=== PATIENT | female | born 1960 | race Caucasian/White ===

== ENCOUNTER 2016-08-16 16:07 | Inpatient (IN) | payer MEDICAID, MEDICARE, OTHER ==
[~2016-08-16] VITALS: Ht 154.9 cm; Wt 66.2 kg
[~2016-08-16 16:07] MED LIST: TRAM50 PO
[2016-08-16 16:13] VITALS: BP 113/76; PULSE 66; RESP 17; TEMP 98.1; O2SAT 96
--- NOTE | 2016-08-16 16:16 | PD ---
HPI Chief Complaint: Fall Time Seen by Provider: 16:16 Travel History International Travel<30 days: No Contact w/Intl Traveler<30days: No Traveled to known affect area: No History of Present Illness HPI 56-year-old female with history of HLD presents to ED after fall from 8 foot ladder. The patient states she was painting, the ladder fell and she landed on her left side, striking her head on the concrete in the process. She denies loss of consciousness. On presentation she complains of 4/10 left thigh and hip pain, exacerbated to 10/10 with attempted ambulation. She denies headache, dizziness, vision changes, neck pain, chest pain, palpitations, abdominal pain, nausea, vomiting, other musculoskeletal pain. Unsure of her last tetanus immunization. No treatment attempted at home. NKDA. PFSH Past Medical History High Cholesterol: Yes Diminished Hearing: No ?: Not Past Surgical History Other Surgery: Yes (skin grafts from bianchi) Social History Alcohol Use: No Tobacco Use: Yes Substance Use: No Allergies-Medications (Allergen,Severity, Reaction): Coded Allergies: No Known Allergies (Unverified , 08/16/16) Reported Meds & Prescriptions Reported Meds & Active Scripts Active Ultram (Tramadol HCl) 50 Mg Tab 50 Mg PO Q6H PRN FOR PAIN Reported [chol med] Review of Systems Except as stated in HPI: all other systems reviewed are Neg Physical Exam Narrative GENERAL: Well-nourished, well-developed white female in no acute distress. SKIN: Warm and dry. There is a 7 -8 cm abrasion on the anterior left keita. Thorough evaluation reveals no other edema, ecchymosis, abrasion, or laceration of the skin. HEAD: Normocephalic. Atraumatic. No raccoon eyes or holloway sign. No tenderness to palpation of the skull. No bony step-offs. No malocclusion of the teeth. EYES: No scleral icterus. No injection or drainage. PERRLA. EOMI. ENT: Pearly leslie tympanic membrane is bilaterally. Nasal mucosa is moist. Oropharynx without erythema, edema or exudate. NECK: Supple, trachea midline. No JVD or lymphadenopathy. No midline tenderness to palpation. Patient retains full, active, painless range of motion of the neck. CARDIOVASCULAR: Regular rate and rhythm without murmurs, gallops, or rubs. 2+ DP and radial pulses bilaterally. RESPIRATORY: Breath sounds clear and equal bilaterally. No accessory muscle use. GASTROINTESTINAL: Abdomen soft, non-tender, nondistended. + Bowel sounds MUSCULOSKELETAL: No cyanosis, or edema. Patient is sitting in the stretcher with the left leg slightly flexed. Tender to palpation of the left anterior hip and groin. Tender to palpation of the shaft of the left femur. Flexion and extension of the left hip and knee elicits pain. No foreshortening, no internal rotation. No other tenderness to palpation or limitations to range of motion of the joints of the upper and lower extremities bilaterally. NEUROLOGICAL: Awake and alert. Cranial nerves II through XII intact. Motor and sensory grossly within normal limits. 5/5 muscle strength in all muscle groups. Normal speech. BACK: Nontender without obvious deformity. No CVA tenderness. No midline tenderness. tenderness. Data Data Last Documented VS Vital Signs Date Time Temp Pulse Resp B/P Pulse Ox O2 Delivery O2 Flow Rate FiO2 08/16/16 17:41 93 Room Air 08/16/16 16:13 98.1 66 17 113/76 Orders Oxycodone-Acetamin 7.5-325 Mg (Percocet (08/16/16 16:30) Ct Brain W/O Iv Contrast(Rout) (08/16/16 16:29) Femur (Ap & Lat/2vws) (08/16/16 16:29) Hip, Uni(Ap&Lat) W Ap Pelvis (08/16/16 16:29) Ice/Cold Pack (08/16/16 16:29) Tetanus/Diphtheria Tox Adult (Tetanus/Di (08/16/16 16:45) Electrocardiogram (08/16/16 17:31) Complete Blood Count With Diff (08/16/16 17:31) Comprehensive Metabolic Panel (08/16/16 17:31) Prothrombin Time / Inr (Pt) (08/16/16 17:31) Act Partial Throm Time (Ptt) (08/16/16 17:31) Type And Screen (08/16/16 17:31) Urinalysis - C+S If Indicated (08/16/16 17:32) Urinary Catheter Insert/Apply (08/16/16 17:32) Chest, Single Ap (08/16/16 ) MDM Medical Decision Making Medical Screen Exam Complete: Yes Emergency Medical Condition: Yes Differential Diagnosis Contusion versus musculoskeletal pain versus femur fracture versus hip fracture versus skull fracture versus intracranial hemorrhage versus other Narrative Course 56-year-old female with history of HLD presents to ED after fall from 8 foot ladder. The patient states she was painting, the ladder fell and she landed on her left side, striking her head on the concrete in the process. She denies loss of consciousness. On presentation she complains of 4/10 left thigh and hip pain, exacerbated to 10/10 with attempted ambulation. She denies headache, dizziness, vision changes, neck pain, chest pain, palpitations, abdominal pain, nausea, vomiting, other musculoskeletal pain. Unsure of her last tetanus immunization. Vitals reviewed. Physical exam reveals well developed white female in no acute distress. She is tender to palpation of the anterior lateral left hip and groin as well as the shaft of the femur. There is a abrasion on the anterior left keita. Otherwise unremarkable. The patient was administered by mouth narcotic pain medications. CT of the head and x-ray of the hip were ordered. X-rays of the hip reveal hip fracture. Basic lab work, chest x-ray, EKG,cruz catheter, UA, IV ordered. Patient will be transferred to a medical bed to provide adequate pain management. Please see oncoming provider notes for disposition. Charline Freeman Aug 16, 2016 16:16
[2016-08-16] MEDS ORDERED: oxyCODONE/ACETAMINOPHEN 7.5 MG/325 MG TAB PO ONE (16:30)
[2016-08-16] MEDS ORDERED: TETANUS/DIPHTHERIA TOXOID ADULT 0.5 ML VIAL IM ONE (16:45)
[2016-08-16] MEDS ORDERED: CHOL MED (16:54)
--- NOTE | 2016-08-16 17:43 | RADRPT ---
EXAM DATE/TIME: 08/16/2016 17:21 [facility] COMPARISON: No previous studies available for comparison. INDICATIONS : Fall with head trauma. RADIATION DOSE: 56.78 CTDIvol (mGy) MEDICAL HISTORY : None documented. SURGICAL HISTORY : None documented. ENCOUNTER: Initial ACUITY: 1 day PAIN SCALE: 7/10 LOCATION: cranial TECHNIQUE: Multiple contiguous axial images were obtained of the head. Using automated exposure control and adj ustment of the mA and/or kV according to patient size, radiation dose was kept as low as reasonably a chievable to obtain optimal diagnostic quality images. FINDINGS: CEREBRUM: The ventricles are normal for age. No evidence of midline shift, mass lesion, hemorrhage or acute in farction. No extra-axial fluid collections are seen. POSTERIOR FOSSA: The cerebellum and brainstem are intact. The 4th ventricle is midline. The cerebellopontine angle i s unremarkable. EXTRACRANIAL: The visualized portion of the orbits is intact. SKULL: The calvaria is intact. No evidence of skull fracture. CONCLUSION: Negative examination. Elan Dennis MD on August 16, 2016 at 17:41 Board Certified Radiologist. This report was verified electronically.
--- NOTE | 2016-08-16 17:46 | RADRPT ---
EXAM DATE/TIME: 08/16/2016 17:00 [facility] COMPARISON: CHEST PA & LAT, November 10, 2015, 17:57. INDICATIONS : Left Hip pain after fall. MEDICAL HISTORY : None. SURGICAL HISTORY : None. ENCOUNTER: Initial ACUITY: 1 day PAIN SCORE: 10/10 LOCATION: Left Hip. FINDINGS: The examination demonstrates a moderately displaced fracture through the left femoral neck. The femor al head remains within the acetabular fossa. The acetabulum appears intact. CONCLUSION: Moderately displaced, impacted fracture of the left hip. Clay Das MD on August 16, 2016 at 17:44 Board Certified Radiologist. This report was verified electronically.
--- NOTE | 2016-08-16 17:47 | RADRPT ---
EXAM DATE/TIME: 08/16/2016 17:00 [facility] COMPARISON: CHEST PA & LAT, November 10, 2015, 17:57. INDICATIONS : Left Femur Pain after fall, proximal femur pain most prevalent. MEDICAL HISTORY : None. SURGICAL HISTORY : None. ENCOUNTER: Initial ACUITY: 1 day PAIN SCORE: 10/10 LOCATION: Left Femur. FINDINGS: The examination demonstrates an angulated, mildly displaced fracture of the left femoral neck. The re mainder of the femur is intact. CONCLUSION: Fracture through the left femoral neck. Clay Das MD on August 16, 2016 at 17:45 Board Certified Radiologist. This report was verified electronically.
[2016-08-16 18:07] LABS: AUTOMATED NEUTROPHIL # 12.4 TH/MM3 (1.8-7.7); BASOPHIL % 0.3 % (0.0-2.0); EOSINOPHIL # 0.1 TH/MM3 (0-0.4); EOSINOPHIL % 0.4 % (0.0-4.0); HEMATOCRIT 42.7 % (35.0-46.0); HEMO FLAGS DIFF FINAL; LYMPH % 9.5 % (9.0-44.0); LYMPHOCYTE # 1.4 TH/MM3 (1.0-4.8); MEAN CELL VOLUME 91.9 FL (80.0-100.0); MEAN CORPUSCULAR HEMOGLOBIN 30.7 PG (27.0-34.0); MEAN CORPUSCULAR HGB CONC 33.4 % (32.0-36.0); MONO % 4.8 % (0.0-8.0); PLATELET COUNT 208 TH/MM3 (150-450); RED BLOOD COUNT 4.65 MIL/MM3 (4.00-5.30); RED CELL DISTRIBUTION WIDTH 14.2 % (11.6-17.2); WHITE BLOOD COUNT 14.5 TH/MM3 (4.0-11.0)
--- NOTE | 2016-08-16 18:11 | PD ---
Physical Exam Date Seen by Provider: Aug 16, 2016 Narrative Patient is brought back to the pot with a known left hip fracture. She was initially seen in triage. Data Data Last Documented VS Vital Signs Date Time Temp Pulse Resp B/P Pulse Ox O2 Delivery O2 Flow Rate FiO2 08/16/16 19:00 59 17 145/73 95 Room Air 08/16/16 16:13 98.1 Orders Oxycodone-Acetamin 7.5-325 Mg (Percocet (08/16/16 16:30) Ct Brain W/O Iv Contrast(Rout) (08/16/16 16:29) Femur (Ap & Lat/2vws) (08/16/16 16:29) Hip, Uni(Ap&Lat) W Ap Pelvis (08/16/16 16:29) Ice/Cold Pack (08/16/16 16:29) Tetanus/Diphtheria Tox Adult (Tetanus/Di (08/16/16 16:45) Electrocardiogram (08/16/16 17:31) Complete Blood Count With Diff (08/16/16 17:31) Comprehensive Metabolic Panel (08/16/16 17:31) Prothrombin Time / Inr (Pt) (08/16/16 17:31) Act Partial Throm Time (Ptt) (08/16/16 17:31) Type And Screen (08/16/16 17:31) Urinalysis - C+S If Indicated (08/16/16 17:32) Urinary Catheter Insert/Apply (08/16/16 17:32) Chest, Single Ap (08/16/16 ) Morphine Inj (Morphine Inj) (08/16/16 18:15) Ondansetron Inj (Zofran Inj) (08/16/16 18:15) Admit Order (Ed Use Only) (08/16/16 19:49) Consult Orthopedic (08/16/16 ) Labs Laboratory Tests Test 08/16/16 08/16/16 17:45 18:15 White Blood Count 14.5 TH/MM3 Red Blood Count 4.65 MIL/MM3 Hemoglobin 14.2 GM/DL Hematocrit 42.7 % Mean Corpuscular Volume 91.9 FL Mean Corpuscular Hemoglobin 30.7 PG Mean Corpuscular Hemoglobin 33.4 % Concent Red Cell Distribution Width 14.2 % Platelet Count 208 TH/MM3 Mean Platelet Volume 9.0 FL Neutrophils (%) (Auto) 85.0 % Lymphocytes (%) (Auto) 9.5 % Monocytes (%) (Auto) 4.8 % Eosinophils (%) (Auto) 0.4 % Basophils (%) (Auto) 0.3 % Neutrophils # (Auto) 12.4 TH/MM3 Lymphocytes # (Auto) 1.4 TH/MM3 Monocytes # (Auto) 0.7 TH/MM3 Eosinophils # (Auto) 0.1 TH/MM3 Basophils # (Auto) 0.0 TH/MM3 CBC Comment DIFF FINAL Differential Comment Prothrombin Time 10.4 SEC Prothromb Time International 0.9 RATIO Ratio Activated Partial 27.5 SEC Thromboplast Time Sodium Level 139 MEQ/L Potassium Level 3.7 MEQ/L Chloride Level 105 MEQ/L Carbon Dioxide Level 26.6 MEQ/L Anion Gap 7 MEQ/L Blood Urea Nitrogen 14 MG/DL Creatinine 1.00 MG/DL Estimat Glomerular Filtration 57 ML/MIN Rate Random Glucose 126 MG/DL Calcium Level 9.2 MG/DL Total Bilirubin 0.2 MG/DL Aspartate Amino Transf 37 U/L (AST/SGOT) Alanine Aminotransferase 37 U/L (ALT/SGPT) Alkaline Phosphatase 113 U/L Total Protein 7.1 GM/DL Albumin 4.0 GM/DL Blood Type O NEGATIVE Antibody Screen NEGATIVE Blood Bank Comment Urine Color YELLOW Urine Turbidity CLEAR Urine pH 6.5 Urine Specific [place] 1.016 Urine Protein NEG mg/dL Urine Glucose (UA) NEG mg/dL Urine Ketones NEG mg/dL Urine Occult Blood TRACE Urine Nitrite NEG Urine Bilirubin NEG Urine Urobilinogen LESS THAN 2.0 MG/DL Urine Leukocyte Esterase NEG Urine Amorphous Sediment RARE Microscopic Urinalysis Comment CULT NOT INDICATED [facility] Supervised Visit with ISAAC: Yes Interpretation(s) EKG shows a sinus rhythm with a ventricular rate of 65. No ST segment elevation or depression. She had a single PVC. Narrative Course I, Dr. Schultz, have reviewed the advance practice practitioner's documentation and am in agreement, met with the patient face to face, made the diagnosis, and the medical decision making was done by me. *My assessment and Findings: The patient is awake and alert and fully oriented.. I have not manipulated her left hip. She has an abrasion on her left keita. She has R he had a tetanus shot. She has full and equal distal pulses. She has normal movement of her toes. Head CT is negative. X-ray of femur and pelvis shows a left femoral neck fracture. H&H is 14.2 and 42.7. White count is 14.5. Chemistries are unremarkable. Coagulation studies are normal. UA is negative for infection. Physician Communication Physician Communication Dr. Blanca asked that I admit the patient to medicine. He asked that we keep the patient NPO after midnight tonight. Diagnosis Primary Impression: Fracture of femoral neck, left Qualified Code: S72.002A - Closed fracture of neck of left femur, initial encounter Admitting Information Admitting Physician Requests: Admit Condition: Stable Goldie Schultz MD Aug 16, 2016 18:11
[2016-08-16] MEDS ORDERED: ONDANSETRON HCL 4 MG/2 ML VIAL IV PUSH ONE (18:15)
[2016-08-16] MEDS ORDERED: MORPHINE SULFATE 8 MG/ML INJ IV PUSH ONE (18:15)
[2016-08-16 18:29] LABS: APTT (PATIENT) 27.5 SEC (24.3-30.1); INTERNATIONAL NORMALIZED RATIO 0.9 RATIO; PROTHROMBIN TIME - PATIENT 10.4 SEC (9.8-11.6)
[2016-08-16 18:30] LABS: ALKALINE PHOSPHATASE 113 U/L (45-117); ALT (GPT) 37 U/L (10-53); ANION GAP 7 MEQ/L (5-15); AST (GOT) 37 U/L (15-37); BICARBONATE 26.6 MEQ/L (21.0-32.0); BLOOD UREA NITROGEN 14 MG/DL (7-18); CHLORIDE 105 MEQ/L (98-107); GLOMERULAR FILTRATION RATE 57 ML/MIN (>89); POTASSIUM 3.7 MEQ/L (3.5-5.1); SODIUM (NA) 139 MEQ/L (136-145); TOTAL BILIRUBIN ADULT 0.2 MG/DL (0.2-1.0)
[2016-08-16 18:36] LABS: BLOOD, URINE TRACE (NEG); COMMENT (UR) CULT NOT INDICATED; CULTURE IF INDICATED CULT NOT INDICATED; GLUCOSE,URINE NEG (NEG); KETONE, URINE NEG (NEG); NITRITE,URINE NEG (NEG); PH, URINE 6.5 (5.0-8.5); URINE COLOR YELLOW (YELLW/STRAW)
--- NOTE | 2016-08-16 18:39 | RADRPT ---
EXAM DATE/TIME: 08/16/2016 17:48 [facility] COMPARISON: CHEST PA & LAT, November 10, 2015, 17:57. INDICATIONS : Evaluate for pneumonia, pneumothorax, or communicable disease. Pre-op Hip Surgery. MEDICAL HISTORY : None. SURGICAL HISTORY : None. ENCOUNTER: Initial ACUITY: 1 day PAIN SCORE: 0/10 LOCATION: Bilateral chest FINDINGS: The lungs are clear without infiltrate, nodule, or mass. There is no appreciable pleural effusion fo r technique. Heart and mediastinum are unremarkable. CONCLUSION: No acute cardiopulmonary disease. Jamila Sigala MD on August 16, 2016 at 18:36 Board Certified Radiologist. This report was verified electronically.
[2016-08-16 19:00] VITALS: BP 145/73; PULSE 59; RESP 17; O2SAT 95
[2016-08-16] MEDS ORDERED: SODIUM CHLOR 0.9% 1000 ML INJ 1,000 ML IV SCH (20:00)
[2016-08-16] MEDS ORDERED: MORPHINE SULFATE 4 MG/ML INJ IV PRN (20:00)
[2016-08-16] MEDS ORDERED: ONDANSETRON HCL 4 MG/2 ML VIAL IVP PRN (20:00)
[2016-08-16] MEDS ORDERED: ACETAMINOPHEN/HYDROcodone 325 MG/5 MG TAB PO PRN (20:00)
[2016-08-16] MEDS ORDERED: BISACODYL 10 MG SUPP PR PRN (20:00)
[2016-08-16] MEDS ORDERED: ACETAMINOPHEN 325 MG TAB PO PRN (20:00)
[2016-08-16] MEDS ORDERED: SODIUM CHLORIDE 0.9% FLUSH 5 ML FLUSH FLUSH PRN (20:00)
--- NOTE | 2016-08-16 20:10 | HHI.HP ---
[facility] Ad[facility] Diagnosis left femoral neck fracture Diagnoses: (1) Fracture of femoral neck, left Diagnosis: Principal (2) Dehydration Diagnosis: Principal (3) Leukocytosis Diagnosis: Principal (4) HTN (hypertension) Diagnosis: Principal Travel History International Travel<30 Days: No Contact w/Intl Traveler <30 Da: No Traveled to Known Affected Are: No History of Present Illness This is a 56-year-old female with a PMH of HTN and Hyperlipidemia who was brought into the ER by EMS secondary to complaints of left hip pain after a fall. Pt states she was up on a ladder when she fell and landed on her left side. No LOC. On arrival, BP 113/76, HR 66, O2 sat 96% on RA, Afebrile. WBC 14.5. Chemistry essentially unremarkable except for GFR 57. UA negative. CXR with no acute findings. CT Head negative. Hip X-ray with moderately displaced impacted fracture of the left hip. Dr. Lockhart consulted by ER physician, plan is for surgical intervention a.m. Review of Systems Other ROS: 14 point review of systems otherwise negative. Past Family Social History Past Medical History PMH: HTN and Hyperlipidemia Past Surgical History PAST SURGICAL HISTORY: Skin Graft Allergies: Coded Allergies: No Known Allergies (Unverified , 08/16/16) Family History PAST FAMILY HISTORY: Reviewed. No h/o DM or CAD Social History PAST SOCIAL HISTORY: Negative for alcohol or drugs. Positive for tobacco. Physical Exam Vital Signs Vital Signs Date Time Temp Pulse Resp B/P Pulse Ox O2 Delivery O2 Flow Rate FiO2 08/16/16 19:00 59 17 145/73 95 Room Air 08/16/16 17:41 93 Room Air 08/16/16 16:13 98.1 66 17 113/76 96 Physical Exam PE: GENERAL: Middle-aged female in no acute distress. HEENT: PERRLA, EOMI. No scleral icterus or conjunctival pallor. No lid lag or facial droop. CARDIOVASCULAR: Regular rate and rhythm. No obvious murmurs to auscultation. No chest tenderness to palpation. RESPIRATORY: No obvious rhonchi or wheezing. Clear to auscultation. Breath sounds equal bilaterally. GASTROINTESTINAL: Abdomen soft, non-tender, nondistended. BS normal. MUSCULOSKELETAL: Decreased ROM of LLE secondary to injury. Pulses intact NEUROLOGICAL: Awake, alert and oriented x4. No focal neurologic deficits. Moving both upper and lower extremities spontaneously. Laboratory Laboratory Tests Test 08/16/16 08/16/16 17:45 18:15 White Blood Count 14.5 Red Blood Count 4.65 Hemoglobin 14.2 Hematocrit 42.7 Mean Corpuscular Volume 91.9 Mean Corpuscular Hemoglobin 30.7 Mean Corpuscular Hemoglobin 33.4 Concent Red Cell Distribution Width 14.2 Platelet Count 208 Mean Platelet Volume 9.0 Neutrophils (%) (Auto) 85.0 Lymphocytes (%) (Auto) 9.5 Monocytes (%) (Auto) 4.8 Eosinophils (%) (Auto) 0.4 Basophils (%) (Auto) 0.3 Neutrophils # (Auto) 12.4 Lymphocytes # (Auto) 1.4 Monocytes # (Auto) 0.7 Eosinophils # (Auto) 0.1 Basophils # (Auto) 0.0 CBC Comment DIFF FINAL Differential Comment Prothrombin Time 10.4 Prothromb Time International 0.9 Ratio Activated Partial 27.5 Thromboplast Time Sodium Level 139 Potassium Level 3.7 Chloride Level 105 Carbon Dioxide Level 26.6 Anion Gap 7 Blood Urea Nitrogen 14 Creatinine 1.00 Estimat Glomerular Filtration 57 Rate Random Glucose 126 Calcium Level 9.2 Total Bilirubin 0.2 Aspartate Amino Transf 37 (AST/SGOT) Alanine Aminotransferase 37 (ALT/SGPT) Alkaline Phosphatase 113 Total Protein 7.1 Albumin 4.0 Blood Type O NEGATIVE Antibody Screen NEGATIVE Blood Bank Comment Urine Color YELLOW Urine Turbidity CLEAR Urine pH 6.5 Urine Specific [place] 1.016 Urine Protein NEG Urine Glucose (UA) NEG Urine Ketones NEG Urine Occult Blood TRACE Urine Nitrite NEG Urine Bilirubin NEG Urine Urobilinogen LESS THAN 2.0 Urine Leukocyte Esterase NEG Urine Amorphous Sediment RARE Microscopic Urinalysis Comment CULT NOT INDICATED Result Diagram: 08/16/16174408/[id number]/161744 Assessment and Plan Problem List: (1) Fracture of femoral neck, left ICD Code: S72.002A Status: Acute (2) Dehydration ICD Code: E86.0 Status: Acute (3) Leukocytosis ICD Code: D72.829 Status: Acute (4) HTN (hypertension) ICD Code: I10 Status: Acute Assessment and Plan A/P: 1. Left Hip Fx: s/p mechanical fall from ladder, +head trauma, no LOC. CT Head w/ no acute findings, images reviewed by me. Hip X-ray w/ moderately displaced, impacted fracture of the left hip. Dr. Lockhart consulted, plan is for surgical intervention in am. NPO, IVF, analgesics/antiemetics as needed. 2. Dehydration: GFR 57, BUN/Creatinine normal. U/a negative. IVF, recheck labs in am. 3. Leukocytosis: WBC 12, afebrile. Likely secondary to fall. Repeat labs in am. 4. HTN: Controlled. Will monitor. 5. DVT Prophylaxis: Anticoagulation post op per Ortho 6. Social work for d/c planning as needed. 7. Case discussed w/ ER physician at length. Physician Certification 2 Midnight Certification Type: Admission for Inpatient Services Order for Inpatient Services The services are ordered in accordance with Medicare regulations or non- Medicare payer requirements, as applicable. In the case of services not specified as inpatient-only, they are appropriately provided as inpatient services in accordance with the 2-midnight benchmark. Estimated LOS (days): 2 days is the estimated time the patient will need to remain in the hospital, assuming treatment plan goals are met and no additional complications. Post-Hospital Plan: Not yet determined Problem Qualifiers (1) Fracture of femoral neck, left: Qualified Code: S72.002A - Closed fracture of neck of left femur, initial encounter Destiny Nassar MD Aug 16, 2016 20:10
[2016-08-16] MEDS: SODIUM CHLORIDE 0.9% FLUSH 5 ML FLUSH FLUSH SCH (21:00)
[2016-08-16 21:40] VITALS: BP 110/68; PULSE 56; RESP 20; TEMP 97.3; O2SAT 93
[2016-08-16] MEDS ORDERED: INSULIN HUMAN REGULAR 1,000 UNITS/10 ML VIAL SQ PRN (23:15)
[2016-08-16] MEDS: SODIUM CHLORID 0.9% 500 ML IV SCH (23:15)
[2016-08-16] MEDS: LACTATED RINGER'S 1000 ML IV SCH (23:15)
[2016-08-17 06:39] LABS: AUTOMATED NEUTROPHIL # 8.1 TH/MM3 (1.8-7.7); BASOPHIL # 0.1 TH/MM3 (0-0.2); BASOPHIL % 0.5 % (0.0-2.0); EOSINOPHIL # 0.1 TH/MM3 (0-0.4); EOSINOPHIL % 1.2 % (0.0-4.0); HEMATOCRIT 40.3 % (35.0-46.0); HEMO FLAGS DIFF FINAL; LYMPH % 15.9 % (9.0-44.0); LYMPHOCYTE # 1.7 TH/MM3 (1.0-4.8); MEAN CELL VOLUME 91.5 FL (80.0-100.0); MEAN CORPUSCULAR HEMOGLOBIN 30.9 PG (27.0-34.0); MEAN CORPUSCULAR HGB CONC 33.7 % (32.0-36.0); MONO % 6.9 % (0.0-8.0); NEUT % 75.5 % (16.0-70.0); PLATELET COUNT 182 TH/MM3 (150-450); WHITE BLOOD COUNT 10.7 TH/MM3 (4.0-11.0)
[2016-08-17 07:04] LABS: ALKALINE PHOSPHATASE 106 U/L (45-117); ALT (GPT) 29 U/L (10-53); ANION GAP 6 MEQ/L (5-15); AST (GOT) 23 U/L (15-37); BICARBONATE 27.5 MEQ/L (21.0-32.0); BLOOD UREA NITROGEN 10 MG/DL (7-18); CHLORIDE 105 MEQ/L (98-107); GLOMERULAR FILTRATION RATE 69 ML/MIN (>89); POTASSIUM 3.9 MEQ/L (3.5-5.1); SODIUM (NA) 138 MEQ/L (136-145); TOTAL BILIRUBIN ADULT 0.4 MG/DL (0.2-1.0)
[2016-08-17] MEDS ORDERED: VANCOMYCIN HCL 1000 MG VIAL ONE (07:23)
[2016-08-17] MEDS ORDERED: GENTAMICIN SULFATE 80 MG/2 ML VIAL ONE (07:23)
[2016-08-17] MEDS ORDERED: ceFAZolin INJ 1,000 MG VIAL ONE (07:23)
[2016-08-17] MEDS ORDERED: FAMOTIDINE 20 MG/2 ML VIAL ONE (07:46)
[2016-08-17] MEDS ORDERED: ACETAMINOPHEN 1000 MG/100 ML VIAL IV ONE ×2 (07:46)
[2016-08-17] MEDS ORDERED: MIDAZOLAM HCL 2 MG/2 ML VIAL ONE (07:46)
[2016-08-17 08:00] VITALS: BP 127/69; PULSE 69; RESP 19; TEMP 98; O2SAT 92
[2016-08-17] MEDS ORDERED: ENALAPRILAT 1.25 MG/ML VIAL IV PRN (08:45)
[2016-08-17] MEDS ORDERED: cloNIDine HCL 0.1 MG TAB PO PRN (08:45)
[2016-08-17] MEDS ORDERED: NALOXONE HCL 0.4 MG/ML AMP IV PUSH PRN (09:00)
[2016-08-17] MEDS: SODIUM CHLORIDE 0.9% FLUSH 5 ML FLUSH FLUSH SCH ×2 (09:00→20:54)
[2016-08-17] MEDS: NICOTINE 21 MG/24 HR PATCH TD SCH (09:00)
--- NOTE | 2016-08-17 09:56 | PD.CONS ---
cc: Leo Blanca Jr., MD HPI Service Orthopedic Surgeons Consult Requested By Primary Care Physician Non-Staff Admission Diagnosis left femoral neck fracture Diagnoses: (1) Fracture of femoral neck, left (2) Dehydration (3) Leukocytosis (4) HTN (hypertension) Chief Complaint: left hip fracture History of Present Illness 56-year-old female, fairly active with past medical history PMH of HTN and Hyperlipidemia is admitted s/p fall with left hip pain and inability bear weight. X-ray taken the emergency department reveal a valgus impacted left femoral neck fracture. Patient reports she fell off a ladder Denies any head injuries. Denies loss of consciousness. Currently patient's pain is 5 out of 10, exacerbated by any range of motion, relieved at rest and with IV pain medicine, pain is sharp nonradiating, not associated with any paresthesia and numbness to the lower extremity. Patient lives independently and does not use any canes or walkers. She denies any chest pain or shortness of breath. She is not on any anticoagulants. Past Family Social History Past Medical History PMH: HTN and Hyperlipidemia Past Surgical History PAST SURGICAL HISTORY: Skin Graft Allergies: NKDA Coded Allergies: No Known Allergies (Unverified , 08/16/16) Family History PAST FAMILY HISTORY: Reviewed. No h/o DM or CAD Social History PAST SOCIAL HISTORY: Negative for alcohol or drugs. Positive for tobacco. Review of Systems Constitutional: DENIES: Diaphoretic episodes, Fatigue, Fever, Weight gain, Weight loss, Chills, Dizziness, Change in appetite, Night Sweats Endocrine: DENIES: Abnorml menstrual pattern, Heat/cold intolerance, Polydipsia , Polyuria, Polyphagia Ears, nose, mouth, throat: DENIES: Tinnitus, Hearing loss, Vertigo, Nasal discharge, Oral lesions, Throat pain, Hoarseness, Ear Pain, Running Nose, Epistaxis, Sinus Pain, Toothache, Odynophagia Respiratory: DENIES: Apneas, Cough, Snoring, Wheezing, Hemoptysis, Sputum production, Shortness of breath Gastrointestinal: DENIES: Abdominal pain, Black stools, Bloody stools, Constipation, Diarrhea, Nausea, Vomiting, Difficulty Swallowing, Anorexia Genitourinary: DENIES: Abnormal vaginal bleeding, Dysmenorrhea, Dyspareunia, Sexual dysfunction, Urinary frequency, Urinary incontinence, Urgency, Hematuria , Dysuria, Nocturia, Vaginal discharge Past Family Social History Past Medical History PMH: HTN and Hyperlipidemia Past Surgical History PAST SURGICAL HISTORY: Skin Graft Allergies: Coded Allergies: No Known Allergies (Unverified , 08/16/16) Active Ordered Medications Current Medications Medications (Trade) Dose Ordered Sig/[place] Route Start Time Stop Time Status Last Admin (NS Flush) 2 ml UNSCH PRN FLUSH 08/16/16 20:00 (NS Flush) 2 ml BID FLUSH 08/16/16 21:00 (Zofran Inj) 4 mg Q6H PRN IVP 08/16/16 20:00 (Dulcolax Supp) 10 mg DAILY PRN ME 08/16/16 20:00 (Tylenol) 650 mg Q6H PRN PO 08/16/16 20:00 ([place] 5-325 Mg) 1 tab Q4H PRN PO 08/16/16 20:00 08/16/16 23:26 (Morphine Inj) 4 mg Q3H PRN IV 08/16/16 20:00 08/17/16 03:24 (Habitrol 21 Mg Patch.24 Hr) 1 patch DAILY TD 08/17/16 09:00 Miscellaneous Information 1 1 DAILY TD 08/18/16 09:00 Lactated Ringer's 1,000 ml @ 30 mls/hr Q24H IV 08/16/16 23:15 (NS 500 ml Inj) 500 ml @ 30 mls/hr [id number] IV 08/16/16 23:15 08/17/16 23:14 (Vasotec Inj) 1.25 mg Q6H PRN IV 08/17/16 08:45 (Catapres) 0.1 mg Q6H PRN PO 08/17/16 08:45 Reported Meds & Active Scripts Active Reported [chol med] Family History PAST FAMILY HISTORY: Reviewed. No h/o DM or CAD Social History PAST SOCIAL HISTORY: Negative for alcohol or drugs. Positive for tobacco. Physical Exam Vital Signs Vital Signs Date Time Temp Pulse Resp B/P Pulse Ox O2 Delivery O2 Flow Rate FiO2 08/17/16 08:00 98.0 69 19 127/69 92 08/16/16 21:47 Nasal Cannula 2.00 08/16/16 21:40 97.3 56 20 110/68 93 08/16/16 20:43 17 08/16/16 19:00 59 17 145/73 95 Room Air 08/16/16 17:41 93 Room Air 08/16/16 16:13 98.1 66 17 113/76 96 Physical Exam Alert awake and oriented x 3. No acute distress. Head: NC/AT Neck: No pain with any range of motion and neck. Trachea is midline. No tenderness to palpation along posterior cervical elements. Pulmonary: Normal respiratory effort. Bilateral upper extremity: No deformities Intact sensation distally in median, ulnar, and radial nerve. Intact motor in anterior interosseous, posterior interosseous, and ulnar nerve. 2+ radial artery pulses. Good cap refill. RIGHT lower extremity: No deformity, grossly Neurovascularly intact, +EHL/FHL. + PT/DP pulses. Supple compartments. Negative Homans sign. LEFT lower extremity: No deformity, TTP greater troch area. pain with abduction of hip. mild ecchymosis. grossly Neurovascularly intact, +EHL/FHL. + PT/DP pulses. Supple compartments. Negative Homans sign. Laboratory Laboratory Tests Test 08/16/16 08/16/16 08/17/16 17:45 18:15 05:43 White Blood Count 14.5 10.7 Red Blood Count 4.65 4.40 Hemoglobin 14.2 13.6 Hematocrit 42.7 40.3 Mean Corpuscular Volume 91.9 91.5 Mean Corpuscular Hemoglobin 30.7 30.9 Mean Corpuscular Hemoglobin 33.4 33.7 Concent Red Cell Distribution Width 14.2 14.0 Platelet Count 208 182 Mean Platelet Volume 9.0 8.7 Neutrophils (%) (Auto) 85.0 75.5 Lymphocytes (%) (Auto) 9.5 15.9 Monocytes (%) (Auto) 4.8 6.9 Eosinophils (%) (Auto) 0.4 1.2 Basophils (%) (Auto) 0.3 0.5 Neutrophils # (Auto) 12.4 8.1 Lymphocytes # (Auto) 1.4 1.7 Monocytes # (Auto) 0.7 0.7 Eosinophils # (Auto) 0.1 0.1 Basophils # (Auto) 0.0 0.1 CBC Comment DIFF FINAL DIFF FINAL Differential Comment Prothrombin Time 10.4 Prothromb Time International 0.9 Ratio Activated Partial 27.5 Thromboplast Time Sodium Level 139 138 Potassium Level 3.7 3.9 Chloride Level 105 105 Carbon Dioxide Level 26.6 27.5 Anion Gap 7 6 Blood Urea Nitrogen 14 10 Creatinine 1.00 0.85 Estimat Glomerular Filtration 57 69 Rate Random Glucose 126 119 Calcium Level 9.2 8.2 Total Bilirubin 0.2 0.4 Aspartate Amino Transf 37 23 (AST/SGOT) Alanine Aminotransferase 37 29 (ALT/SGPT) Alkaline Phosphatase 113 106 Total Protein 7.1 6.6 Albumin 4.0 3.3 Blood Type O NEGATIVE Antibody Screen NEGATIVE Blood Bank Comment Urine Color YELLOW Urine Turbidity CLEAR Urine pH 6.5 Urine Specific [place] 1.016 Urine Protein NEG Urine Glucose (UA) NEG Urine Ketones NEG Urine Occult Blood TRACE Urine Nitrite NEG Urine Bilirubin NEG Urine Urobilinogen LESS THAN 2.0 Urine Leukocyte Esterase NEG Urine Amorphous Sediment RARE Microscopic Urinalysis Comment CULT NOT INDICATED Result Diagram: 08/17/16 0543 08/17/16 0543 Imaging Last 72 hours Impressions Hip and Pelvis X-Ray 08/16/16 1629 Signed Impressions: Service Date/Time: Tuesday, August 16, 2016 17:00 - CONCLUSION: Moderately displaced, impacted fracture of the left hip. Clay Das MD Head CT 08/16/16 1629 Signed Impressions: Service Date/Time: Tuesday, August 16, 2016 17:21 - CONCLUSION: Negative examination. Elan Dennis MD Femur X-Ray 08/16/16 1629 Signed Impressions: Service Date/Time: Tuesday, August 16, 2016 17:00 - CONCLUSION: Fracture through the left femoral neck. Clay Das MD Chest X-Ray 08/16/16 0000 Signed Impressions: Service Date/Time: Tuesday, August 16, 2016 17:48 - CONCLUSION: No acute cardiopulmonary disease. Jamila Sigala MD Assessment & Plan Assessment and Plan 56-year-old active female with past medical history of hypertension fell off a ladder complaint left hip pain and inability to bear weight. X-ray taken in the ER revealed a valgus impacted left femoral neck fracture. I recommended percutaneous screw fixation. I discussed my treatment plans with the patient, as well as risks, benefits and alternatives of surgical Intervention versus nonoperative treatment. In this case, the risks of operative intervention involves bleeding, infection, risks of damage to neurovascular structures, the risk of needing further surgery, posttraumatic arthritis and the risks involved with complication from anesthesia. We will proceed with the above procedure. The patient accepts these risks; understands and agrees with my recommendations. I also discussed my proposed postoperative care and follow-up plan. All questions were answered. Plan for OR []. Nothing by mouth []. Patient consented. Thanks for the consult, thanks for allowing me to participate in this patient's medical care. Leo Blanca Jr., MD Aug 17, 2016 09:56
[2016-08-17] MEDS ORDERED: DO NOT ADM ANY ANTICOAGULANT DRUGS XX PRN (09:58)
[2016-08-17] MEDS ORDERED: fentaNYL CITRATE 250 MCG/5 ML AMP ONE (10:00)
--- NOTE | 2016-08-17 10:01 | PD.OP ---
cc: Leo Blanca Jr., MD Operative Report Date of Surgery: Aug 17, 2016 Preoperative Diagnosis: Left valgus impacted femoral neck fracture Postoperative Diagnosis: Same Procedure: Left hip percutaneous screw fixation Anesthesia: Gen. Surgeon: Leo Blanca Sales Market Leader(s): Hospital staff Resident Surgeon: None Operation and Findings: Estimated blood loss: Minimal cc Implants: Synthes stainless steel cannulated screws, 6.5mm. The patient received intravenous Ancef. After the appropriate anesthesia was administered, the patient was transferred to the fracture table. The fracture was left in situ. The hip was prepped and draped in usual sterile fashion. Using fluoroscopic guidance we made 3 small percutaneous incisions on the lateral aspect of the hip. We then incised through the deep fascia as well. We placed three threaded guidewires in a triangular configuration, starting laterally with the tips of the guidewires placed within the femoral head. We confirmed that there was no intra-articular penetration of the tips of these guidewires. The lateral aspect of the guidewires were kept proximal to the lower portion of the lesser trochanter to reduce the risk of periprosthetic fracture. We measured the appropriate depth for the screws and then drilled the cortex laterally. The 3 screws were then placed within the bone. The screws purchase into the bone was considered to be excellent. We took final fluoroscopic imaging which revealed that the fracture remained good position. The hardware was in good position as well. The wounds were thoroughly irrigated and then closed with a betzaida. The postoperative plan is to start 50% weightbearing. Additionally, we will initiate postoperative antibiotics for 24 hours along with DVT prophylaxis consisting of early mobilization, SCDs, compression stockings, and []. POSTP-OP PLAN OF ACTIVITY Antibiotics: Ancef Antiocoagulation: Lovenox Weight bearing status: 50% WB PT/OT: OOB TID Dressing: Change daily, by RN starting postop day 3 Future procedure planned: none Dispo: expected discharge 1-2 days. Likely home with . Leo Blanca Jr., MD Aug 17, 2016 10:01
[2016-08-17] MEDS ORDERED: ZOFR8TAB PO (10:02)
[2016-08-17] MEDS ORDERED: PERC5TAB12 PO (10:02)
[2016-08-17] MEDS ORDERED: *RESP: ALBUTEROL 2.5 MG/3 ML NEB (PRN) PERIprocedural Use ONLY NEB ONE (10:07)
--- NOTE | 2016-08-17 10:08 | RADRPT ---
EXAM DATE/TIME: 08/17/2016 08:48 [facility] COMPARISON: No previous studies available for comparison. INDICATIONS : Left Hip Pinning. MEDICAL HISTORY : None. SURGICAL HISTORY : None. ENCOUNTER: Initial ACUITY: 1 day PAIN SCORE: Non-responsive. LOCATION: Left Hip. FINDINGS: Status post internal fixation of the left hip. There are [address] which appear to be in good position. There is good alignment at the hip joint. The hardware is grossly intact. CONCLUSION: Good position and alignment on this postoperative study. Candido Coker MD on August 17, 2016 at 10:06 Board Certified Radiologist. This report was verified electronically.
[2016-08-17] MEDS ORDERED: oxyCODONE/ACETAMINOPHEN 5 MG/325 MG TAB PO PRN ×2 (10:15)
[2016-08-17] MEDS ORDERED: MORPHINE SULFATE 8 MG/ML INJ IV PUSH PRN (10:15)
[2016-08-17] MEDS ORDERED: ZOLPIDEM TARTRATE 5 MG TAB PO PRN (10:15)
[2016-08-17] MEDS ORDERED: SODIUM CHLORIDE 0.9% FLUSH 5 ML FLUSH IVF PRN (10:15)
[2016-08-17] MEDS ORDERED: PROMETHAZINE HCL 25 MG TAB PO PRN (10:15)
[2016-08-17] MEDS ORDERED: Post-op Orders (for Pharmacy) MISC XX ONE (10:15)
[2016-08-17] MEDS ORDERED: PROPOFOL 200 MG/20 ML AMP IV ONE (10:16)
[2016-08-17] MEDS ORDERED: ONDANSETRON HCL 4 MG/2 ML VIAL IV PUSH ONE (10:16)
[2016-08-17] MEDS ORDERED: ePHEDrine/NS 50 MG/5 ML SYR IV ONE (10:16)
[2016-08-17] MEDS ORDERED: *morphine SULFATE 8 MG/ML PERIprocedure ONLY ONE (10:23)
[2016-08-17] MEDS: KETOROLAC TROMETHAMINE 30 MG/ML (IVP) VIAL IVP SCH ×3 (10:40→20:55)
[2016-08-17 12:00] VITALS: BP 120/64; PULSE 66; RESP 17; TEMP 97.3; O2SAT 91
--- NOTE | 2016-08-17 12:10 | EKG ---
Date Performed: 08/16/2016 Time Performed: 18:04:20 PTAGE: 56 years EKG: Sinus rhythm NORMAL ECG NO PREVIOUS TRACING DOCTOR: Juvenal Gonzalez Interpretating Date/Time 08/17/2016 12:06:57
[2016-08-17 12:47] LABS: HEMOGLOBIN A1a 1.4 %; HEMOGLOBIN A1b 1.8 %; HEMOGLOBIN Ao 84.3 %; HEMOGLOBIN LA1C 2.2 %; HEMOGLOBIN P3 3.8 %
--- NOTE | 2016-08-17 14:22 | HHI.PR ---
Subjective Remarks Follow-up left hip fracture. Tolerated procedure very denies any pain. Seen with . Discussed with RN. Objective Vitals Vital Signs Date Time Temp Pulse Resp B/P Pulse Ox O2 Delivery O2 Flow Rate FiO2 08/17/16 12:00 97.3 66 17 120/64 91 08/17/16 10:52 98.2 14 126/83 94 Nasal Cannula 08/17/16 10:45 68 14 142/80 90 Nasal Cannula 08/17/16 10:30 68 14 136/88 93 Nasal Cannula 08/17/16 10:15 76 15 146/88 91 Nasal Cannula 08/17/16 10:00 72 12 139/80 93 Nasal Cannula 08/17/16 09:53 96.9 89 12 144/77 94 Nasal Cannula 4 08/17/16 08:00 98.0 69 19 127/69 92 08/16/16 21:47 Nasal Cannula 2.00 08/16/16 21:40 97.3 56 20 110/68 93 08/16/16 20:43 17 08/16/16 19:00 59 17 145/73 95 Room Air 08/16/16 17:41 93 Room Air 08/16/16 16:13 98.1 66 17 113/76 96 I/O 08/16/16 08/16/16 08/16/16 08/17/16 08/17/16 08/17/16 07:00 15:00 23:00 07:00 15:00 23:00 Intake Total 150 ml 0 ml 1475 ml Output Total 575 ml 400 ml 310 ml Balance -425 ml -400 ml 1165 ml Intake Oral 150 ml 0 ml 75 ml IV Total 200 ml Other 1200 ml Output Urine Total 575 ml 400 ml 300 ml Estimated Blood Loss 10 ml # Bowel Movements 0 0 Result Diagram: 08/17/16 0543 08/17/16 0543 Imaging Last Impressions Hip X-Ray 08/17/16 0000 Signed Impressions: Service Date/Time: Wednesday, August 17, 2016 08:48 - CONCLUSION: Good position and alignment on this postoperative study. Candido Coker MD Hip and Pelvis X-Ray 08/16/16 1629 Signed Impressions: Service Date/Time: Tuesday, August 16, 2016 17:00 - CONCLUSION: Moderately displaced, impacted fracture of the left hip. Clay Das MD Head CT 08/16/16 1629 Signed Impressions: Service Date/Time: Tuesday, August 16, 2016 17:21 - CONCLUSION: Negative examination. Elan Dennis MD Femur X-Ray 08/16/16 1629 Signed Impressions: Service Date/Time: Tuesday, August 16, 2016 17:00 - CONCLUSION: Fracture through the left femoral neck. Clay Das MD Chest X-Ray 08/16/16 0000 Signed Impressions: Service Date/Time: Tuesday, August 16, 2016 17:48 - CONCLUSION: No acute cardiopulmonary disease. Jamila Sigala MD Objective Remarks GENERAL: This is a well-nourished, well-developed patient, in no apparent distress. CARDIOVASCULAR: Regular rate and rhythm without murmurs, gallops, or rubs. RESPIRATORY: Clear to auscultation. Breath sounds equal bilaterally. No wheezes , rales, or rhonchi. GASTROINTESTINAL: Abdomen soft, non-tender, nondistended. Normal active bowel sounds MUSCULOSKELETAL: Extremities without clubbing, cyanosis, or edema. Left hip dressing intact NEURO: Alert & Oriented x4 to person, place, time, situation. Moves all ext x4 Procedures Percutaneous screw fixation of left hip fracture A/P Problem List: (1) Fracture of femoral neck, left ICD Code: S72.002A Status: Acute (2) Dehydration ICD Code: E86.0 Status: Resolved (3) Leukocytosis ICD Code: D72.829 Status: Resolved (4) HTN (hypertension) ICD Code: I10 Status: Chronic Assessment and Plan 1. Left Hip Fx: s/p mechanical fall from ladder, +head trauma, no LOC. CT Head w/ no acute findings, images reviewed by me. Hip X-ray w/ moderately displaced, impacted fracture of the left hip. Status post percutaneous screw fixation. Stable continue postoperative care. 2. Dehydration: GFR 57, BUN/Creatinine normal. U/a negative. IVF. Improved 3. Leukocytosis: WBC 12, afebrile. Likely secondary to fall. Resolved 4. HTN: Controlled. Will monitor. 5. Hyperglycemia. Obtain A1c which is 6. DVT Prophylaxis: Anticoagulation post op per Ortho with Lovenox Discharge Planning dc per ortho Problem Qualifiers (1) Fracture of femoral neck, left: Qualified Code: S72.002A - Closed fracture of neck of left femur, initial encounter Joe Renteria MD Aug 17, 2016 14:22
[2016-08-17] MEDS: SODIUM CHLORID 0.9% 500 ML IV SCH (15:55)
[2016-08-17 16:00] VITALS: BP 94/64; PULSE 64; RESP 17; TEMP 98.3; O2SAT 94
[2016-08-17 16:04] VITALS: O2SAT 94
[2016-08-17 20:00] VITALS: BP 117/70; PULSE 57; RESP 17; TEMP 97.3; O2SAT 95
[2016-08-17] MEDS: LACTATED RINGER'S 1000 ML IV SCH (20:49)
[2016-08-17] MEDS: ENOXAPARIN SODIUM 30 MG/0.3 ML SYRINGE SQ SCH (20:53)
[2016-08-17] MEDS: SODIUM CHLORIDE 0.9% FLUSH 5 ML FLUSH IVF SCH (20:54)
[2016-08-17] MEDS ORDERED: MAGNESIUM HYDROXIDE SUSP 30 ML CUP PO PRN (23:45)
[2016-08-18 00:20] VITALS: BP 122/78; PULSE 56; RESP 16; TEMP 97; O2SAT 96
[2016-08-18 03:45] VITALS: BP 121/65; PULSE 64; RESP 16; TEMP 97.6; O2SAT 96
[2016-08-18] MEDS: KETOROLAC TROMETHAMINE 30 MG/ML (IVP) VIAL IVP SCH ×3 (05:56→15:30)
[2016-08-18 08:00] VITALS: BP 133/71; PULSE 62; RESP 18; TEMP 99.1; O2SAT 97
[2016-08-18] MEDS ORDERED: REMOVE OLD PATCH TD SCH (09:00)
[2016-08-18] MEDS: SODIUM CHLORIDE 0.9% FLUSH 5 ML FLUSH IVF SCH (09:00)
[2016-08-18] MEDS: ENOXAPARIN SODIUM 30 MG/0.3 ML SYRINGE SQ SCH (09:28)
[2016-08-18] MEDS: NICOTINE 21 MG/24 HR PATCH TD SCH (09:29)
[2016-08-18] MEDS: SODIUM CHLORIDE 0.9% FLUSH 5 ML FLUSH FLUSH SCH (09:29)
--- NOTE | 2016-08-18 10:55 | HHI.PR ---
Subjective Remarks Follow-up left hip fracture. Doing K patient ambulating with minimal pain. She wants to go home. Objective Vitals Vital Signs Date Time Temp Pulse Resp B/P Pulse Ox O2 Delivery O2 Flow Rate FiO2 08/18/16 09:39 Room Air 08/18/16 08:00 99.1 62 18 133/71 97 08/18/16 03:45 97.6 64 16 121/65 96 08/18/16 00:20 97.0 56 16 122/78 96 08/17/16 20:49 96 Nasal Cannula 3.00 08/17/16 20:00 97.3 57 17 117/70 95 08/17/16 16:04 94 Nasal Cannula 3.00 08/17/16 16:00 98.3 64 17 94/64 94 08/17/16 12:00 97.3 66 17 120/64 91 I/O 08/17/16 08/17/16 08/17/16 08/18/16 08/18/16 08/18/16 07:00 15:00 23:00 07:00 15:00 23:00 Intake Total 0 ml 2195 ml 960 ml 480 ml Output Total 400 ml 1110 ml 450 ml 525 ml Balance -400 ml 1085 ml 510 ml -45 ml Intake Oral 0 ml 795 ml 960 ml 480 ml IV Total 200 ml Other 1200 ml Output Urine Total 400 ml 1100 ml 450 ml 525 ml Estimated Blood Loss 10 ml # Voids 0 # Bowel Movements 0 0 0 0 Result Diagram: 08/17/16 0543 08/17/16 0543 Objective Remarks GENERAL: This is a well-nourished, well-developed patient, in no apparent distress. CARDIOVASCULAR: Regular rate and rhythm without murmurs, gallops, or rubs. RESPIRATORY: Clear to auscultation. Breath sounds equal bilaterally. No wheezes , rales, or rhonchi. GASTROINTESTINAL: Abdomen soft, non-tender, nondistended. Normal active bowel sounds MUSCULOSKELETAL: Extremities without clubbing, cyanosis, or edema. Left hip dressing intact NEURO: Alert & Oriented x4 to person, place, time, situation. Moves all ext x4 Procedures Percutaneous screw fixation of left hip fracture A/P Problem List: (1) Fracture of femoral neck, left ICD Code: S72.002A Status: Acute (2) Dehydration ICD Code: E86.0 Status: Resolved (3) Leukocytosis ICD Code: D72.829 Status: Resolved (4) HTN (hypertension) ICD Code: I10 Status: Chronic Assessment and Plan 1. Left Hip Fx: s/p mechanical fall from ladder, +head trauma, no LOC. CT Head w/ no acute findings, images reviewed by me. Hip X-ray w/ moderately displaced, impacted fracture of the left hip. Status post percutaneous screw fixation. Stable continue postoperative care. Discussed with physical therapy , does not need home care therapy. Counseled regarding narcotics 2. Dehydration: GFR 57, BUN/Creatinine normal. U/a negative. IVF. Improved 3. Leukocytosis: WBC 12, afebrile. Likely secondary to fall. Resolved 4. HTN: Controlled. Will monitor. 5. Hyperglycemia. Obtain A1c which is 6. DVT Prophylaxis: Anticoagulation post op per Ortho with Lovenox Discharge Planning dc per ortho Problem Qualifiers (1) Fracture of femoral neck, left: Qualified Code: S72.002A - Closed fracture of neck of left femur, initial encounter Joe Renteria MD Aug 18, 2016 10:55
[2016-08-18 12:00] VITALS: BP 151/92; PULSE 62; RESP 18; TEMP 98.8; O2SAT 93
--- NOTE | 2016-08-18 13:12 | PD.ORT.PN ---
Subjective Subjective Remarks no issues. pain controlled. has been up with PT Objective Vitals Vital Signs Date Time Temp Pulse Resp B/P Pulse Ox O2 Delivery O2 Flow Rate FiO2 08/18/16 12:00 98.8 62 18 151/92 93 08/18/16 09:39 Room Air 08/18/16 08:00 99.1 62 18 133/71 97 08/18/16 03:45 97.6 64 16 121/65 96 08/18/16 00:20 97.0 56 16 122/78 96 08/17/16 20:49 96 Nasal Cannula 3.00 08/17/16 20:00 97.3 57 17 117/70 95 08/17/16 16:04 94 Nasal Cannula 3.00 08/17/16 16:00 98.3 64 17 94/64 94 I/O 08/17/16 08/17/16 08/17/16 08/18/16 08/18/16 08/18/16 07:00 15:00 23:00 07:00 15:00 23:00 Intake Total 0 ml 2195 ml 960 ml 480 ml Output Total 400 ml 1110 ml 450 ml 525 ml Balance -400 ml 1085 ml 510 ml -45 ml Intake Oral 0 ml 795 ml 960 ml 480 ml IV Total 200 ml Other 1200 ml Output Urine Total 400 ml 1100 ml 450 ml 525 ml Estimated Blood Loss 10 ml # Voids 0 # Bowel Movements 0 0 0 0 Result Diagram: 08/17/16 0543 08/17/16 0543 Objective Remarks LLE: nvi. dressing CDI. soft compartments. neg homans Assessment & Plan Assessment and Plan POD 1- Left hip perc screws doing great. 50% wbat lovenox no dressing changes f/u 2 wks ok to dc Leo Blanca Jr., MD Aug 18, 2016 13:12
[2016-08-18] MEDS ORDERED: DOCU1CAP39 PO (14:46)
--- NOTE | 2016-08-18 14:46 | HHI.DCPOC ---
Discharge Care Plan Diagnosis: (1) Fracture of femoral neck, left Your Health Problems Are: Difficulty with ADL Exercise Tolerance Goals to Promote Your Health * To prevent worsening of your condition and complications * To maintain your health at the optimal level Directions to Meet Your Goals Take your medications as prescribed Follow your dietary instruction Follow activity as directed Keep your appointments as scheduled Take your immunizations and boosters as scheduled If your symptoms worsen call your PCP, if no PCP go to Urgent Care Center or Emergency Room Smoking is Dangerous to Your Health. Avoid second hand smoke Call the 24-hour hour crisis hotline for domestic abuse at Joe Renteria MD Aug 18, 2016 14:46
[2016-08-18] MEDS ORDERED: ENOX40P SQ (14:49)
[2016-08-18] MEDS ORDERED: DOCUSATE SODIUM 100 MG CAP PO SCH (21:00)
== END 2016-08-18 16:15 | disposition home or self-care (01) | DRG 482 ==
LOC: NEPA 16:07 → NEDA 19:51 → N06B 21:13
PROVIDERS: ADMIT Internal Medicine; ATTEND Internal Medicine
PROC: 0QH734Z Insertion of Internal Fixation Device into Left Upper Femur, Percutaneous Approach (ICD-10-PCS; principal; 2016-08-17 08:14)
DX: S72.002A Fracture of unspecified part of neck of left femur, initial encounter for closed fracture (principal); I10 Essential (primary) hypertension; E86.0 Dehydration; D72.829 Elevated white blood cell count, unspecified; E78.5 Hyperlipidemia, unspecified; E78.00 Pure hypercholesterolemia, unspecified; Z72.0 Tobacco use; W11.XXXA Fall on and from ladder, initial encounter; Y93.89 Activity, other specified; Y92.9 Unspecified place or not applicable; Y99.9 Unspecified external cause status; R73.9 Hyperglycemia, unspecified
CPT/HCPCS: 51702; 70450; 71010; 73502; 73552; 76000; 80053; 81001; 83036; 85025; 85610; 85730; 86850; 86900; 86901; 90471; 90714; 93005; 94150; 94664; 96374; 96375; C1713; C1769; J0131; J0690; J1580; J1650; J1885; J2250; J2270; J2405; J3010; J3370; J7030; J7613